=== PATIENT | female | born 1965 | race Caucasian/White ===

== ENCOUNTER 2023-02-03 21:12 | Emergency (ER) | payer BC ==
[2023-02-03 21:18] VITALS: BP 126/78; PULSE 101; RESP 18; TEMP 98.8; BMI 25.1
[2023-02-03] MEDS ORDERED: DALBAVANCIN HCL 1,500 MG in DEXTROSE 5%-WATER - 500 ML IVPB ONE (21:26)
[2023-02-03] MEDS ORDERED: DALBAVANCIN HCL 500 MG VIAL (RESTRICTED TO ID ONLY) IVPB ONE (21:30)
== END 2023-02-03 23:25 | disposition home or self-care (01) ==
LOC: FER 21:12
DX: S80.812A Abrasion, left lower leg, initial encounter (principal); R22.42 Localized swelling, mass and lump, left lower limb; L03.116 Cellulitis of left lower limb; M79.662 Pain in left lower leg; X58.XXXA Exposure to other specified factors, initial encounter
CPT/HCPCS: 99284-25; J0875